=== PATIENT | male | born 1980 | race Caucasian/White ===

== ENCOUNTER 2018-07-02 09:04 | Emergency (ER) | payer BC ==
[2018-07-02 09:09] VITALS: BP 140/93
[2018-07-02] MEDS ORDERED: NORMAL SALINE 500 ML IV ONE (09:26)
[2018-07-02] MEDS ORDERED: HYDROMORPHONE HCL INJ/PF 2 MG/ML AMPULE IV ONE (09:28)
[2018-07-02] MEDS ORDERED: ONDANSETRON HCL INJ/PF 4 MG/2 ML SDV IV ONE (09:28)
--- NOTE | 2018-07-02 09:32 | ER Document Report ---
ED Medical Screen (RME) - General Chief Complaint: Abdominal Pain Stated Complaint: ABDOMINAL PAIN Time Seen by Provider: 07/02/18 09:26 Mode of Arrival: Ambulatory Information source: Patient Notes: Patient complained of abdominal pain which started yesterday. No nausea vomiting or diarrhea. He denies chest pain or shortness of breath. Patient states that he has had Pancreatitis in the past and the pain is similar to that experience. He said he drank alcohol on night. Patient requested for Dilaudid for pain control. I have greeted and performed a rapid initial assessment of this patient. A comprehensive ED assessment and evaluation of the patient, analysis of test results and completion of the medical decision making process will be conducted by additional ED providers. TRAVEL OUTSIDE OF THE [place] IN LAST 30 DAYS: No - Related Data Allergies/Adverse Reactions: No Known Allergies Allergy (Verified 02/04/16 19:44) Past Medical History - Social History Chew tobacco use (# tins/day): No Frequency of alcohol use: Occasional Drug Abuse: None Renal/ Medical History: Denies: Hx Peritoneal Dialysis Past Surgical History: Reports: Hx Tonsillectomy - Immunizations Hx Diphtheria, Pertussis, Tetanus Vaccination: Yes Physical Exam - Vital signs Vitals: Temp Pulse Resp BP Pulse Ox 98.5 F 90 14 140/93 H 97 07/02/18 09:08 07/02/18 09:08 07/02/18 09:08 07/02/18 09:08 07/02/18 09:08 Course - Vital Signs Vital signs: Temp Pulse Resp BP Pulse Ox 98.5 F 90 14 140/93 H 97 07/02/18 09:08 07/02/18 09:08 07/02/18 09:08 07/02/18 09:08 07/02/18 09:08
[2018-07-02 09:51] LABS: ABSOLUTE EOSINOPHILS # (AUTO) 0.1 10^3/uL (0.0-0.6); ABSOLUTE MONOCYTES (AUTO) 0.8 10^3/uL (0.1-1.4); BASOPHILS % (AUTO) 0.3 % (0-2); EOSINOPHILS % (AUTO) 0.8 % (0-6); HEMATOCRIT 50.2 % (37.9-51.0); HEMOGLOBIN 17.7 g/dL (13.5-17.0); LYMPHOCYTES % (AUTO) 14.6 % (13-45); MEAN CORPUSCULAR HGB CONC 35.2 g/dL (32.0-36.0); MEAN CORPUSCULAR VOLUME 99 fl (80-97); MONOCYTES % (AUTO) 5.8 % (3-13); PLATELET COUNT 248 10^3/uL (150-450); RED BLOOD COUNT 5.05 10^6/uL (4.35-5.55); RED CELL DISTRIBUTION WIDTH 12.8 % (11.5-14.0); SEGMENTED NEUTROPHILS % (AUTO) 78.5 % (42-78); TOTAL CELLS COUNTED % (AUTO) 100 %
[2018-07-02 10:02] LABS: ALANINE AMINOTRANSFERASE 60 U/L (21-72); ALBUMIN 4.7 g/dL (3.5-5.0); ALKALINE PHOSPHATASE 105 U/L (38-126); AMYLASE 163 U/L (30-110); ANION GAP 12 (5-19); ASPARTATE AMINO TRANSFERASE 79 U/L (17-59); BILIRUBIN,DIRECT 0.8 mg/dL (0.0-0.4); BILIRUBIN,TOTAL 1.9 mg/dL (0.2-1.3); BLOOD UREA NITROGEN 8 mg/dL (7-20); CALCIUM 9.7 mg/dL (8.4-10.2); CARBON DIOXIDE 22 mmol/L (22-30); CHLORIDE 101 mmol/L (98-107); GLUCOSE 90 mg/dL (75-110); POTASSIUM 4.6 mmol/L (3.6-5.0); SODIUM 134.7 mmol/L (137-145); TOTAL PROTEIN 7.6 g/dL (6.3-8.2)
[2018-07-02 10:09] LABS: LIPASE 2446.4 U/L (23-300)
--- NOTE | 2018-07-02 10:21 | ER Document Report ---
ED General - General Chief Complaint: Abdominal Pain Stated Complaint: ABDOMINAL PAIN Time Seen by Provider: 07/02/18 09:26 Mode of Arrival: Ambulatory Notes: 37-year-old male to emergency department chief complaint of nausea vomiting, diarrhea and abdominal pain. Patient has a history of pancreatitis. Had a pre- [employer] constitution party and pounded down some significant amount of alcohol according to patient. Began having abdominal pain afterwards. Thinks he may have pancreatitis. Denies any fever, chills, sweats. Denies any other major symptoms. No prior surgeries. Previous pancreatitis in 2012 and was hospitalized for 3 days on an n.p.o. diet. Patient states that he knows the treatment is just not eat anything and just drink clear liquids so that is what he has been doing but was feeling too sick to drink nonalcoholic beverages today. TRAVEL OUTSIDE OF THE [place] IN LAST 30 DAYS: No - HPI Onset: Yesterday Onset/Duration: Gradual, Worse Quality of pain: Achy Severity: Moderate Pain Level: 2 Associated symptoms: Diarrhea, Nausea, Vomiting - Related Data Allergies/Adverse Reactions: No Known Allergies Allergy (Verified 02/04/16 19:44) Past Medical History - General Information source: Patient - Social History Smoking Status: Never Smoker Chew tobacco use (# tins/day): No Frequency of alcohol use: Occasional Drug Abuse: None Family History: Reviewed & Not Pertinent Patient has suicidal ideation: No Patient has homicidal ideation: No - Medical History Medical History: Negative Renal/ Medical History: Denies: Hx Peritoneal Dialysis Past Surgical History: Reports: Hx Tonsillectomy - Immunizations Hx Diphtheria, Pertussis, Tetanus Vaccination: Yes Review of Systems - Review of Systems Notes: Constitutional: denies: Chills, Diaphoresis, Fever, Malaise, Weakness EENT: denies: Eye discharge, Blurred vision, Tearing, Double vision, Nose congestion, Nose discharge, Throat swelling, Mouth pain Cardiovascular: denies: Palpitations, Heart racing, Orthopnea, Dyspnea, Chest pain Respiratory: denies: Cough, Hurts to breathe, Wheezing, Shortness of breath Gastrointestinal: Complaining of nausea, vomiting, abdominal pain, diarrhea. Denies any black tarry stools or bright red blood in the stool. Genitourinary: denies: Burning, Dysuria, Discharge, Frequency, Flank pain, Hematuria Musculoskeletal: denies: Joint pain, Joint swelling, Muscle pain, Muscle stiffness, back pain Hematologic/Lymphatic: denies: Anemia, Easy bleeding, Easy bruising, Blood clots Neurological/Psychological: denies: Confusion, Dementia, Depression, Loss of consciousness Skin: No lesions, no masses, no skin breakdown, no abscesses Physical Exam - Vital signs Vitals: Temp Pulse Resp BP Pulse Ox 98.5 F 90 14 140/93 H 97 07/02/18 09:08 07/02/18 09:08 07/02/18 09:08 07/02/18 09:08 07/02/18 09:08 Interpretation: Normal - General General appearance: Appears well, Alert - HEENT Head: Normocephalic, Atraumatic Eyes: Normal Pupils: PERRL - Respiratory Respiratory status: No respiratory distress Chest status: Nontender Breath sounds: Normal Chest palpation: Normal - Cardiovascular Rhythm: Regular Heart sounds: Normal auscultation Murmur: No - Abdominal Inspection: Normal Distension: No distension Bowel sounds: Normal Tenderness: Tender - Mild tenderness palpation in the epigastric region. No guarding or rebound. Organomegaly: No organomegaly - Back Back: Normal, Nontender - Extremities General upper extremity: Normal inspection, Nontender, Normal color, Normal ROM , Normal temperature General lower extremity: Normal inspection, Nontender, Normal color, Normal ROM , Normal temperature, Normal weight bearing. No: Ernestine's sign - Neurological Neuro grossly intact: Yes Cognition: Normal Orientation: AAOx4 Mike Coma Scale Eye Opening: Spontaneous Mike Coma Scale Verbal: Oriented Mike Coma Scale Motor: Obeys Commands Rippey Coma Scale Total: 15 Speech: Normal Motor strength normal: LUE, RUE, LLE, RLE Sensory: Normal - Psychological Associated symptoms: Normal affect, Normal mood - Skin Skin Temperature: Warm Skin Moisture: Dry Skin Color: Normal Course - Re-evaluation Re-evalutation: 07/02/18 11:24 Laboratory 07/02/18 07/02/18 07/02/18 09:30 09:30 09:50 WBC 14.0 H RBC 5.05 Hgb 17.7 H Hct 50.2 MCV 99 H MCH 35.0 H MCHC 35.2 RDW 12.8 Plt Count 248 Seg Neutrophils % 78.5 H Lymphocytes % 14.6 Monocytes % 5.8 Eosinophils % 0.8 Basophils % 0.3 Absolute Neutrophils 11.0 H Absolute Lymphocytes 2.0 Absolute Monocytes 0.8 Absolute Eosinophils 0.1 Absolute Basophils 0.0 Sodium 134.7 L Potassium 4.6 Chloride 101 Carbon Dioxide 22 Anion Gap 12 BUN 8 Creatinine 0.73 Est GFR ( Amer) > 60 Est GFR (Non-Af Amer) > 60 Glucose 90 Calcium 9.7 Total Bilirubin 1.9 H Direct Bilirubin 0.8 H Neonat Total Bilirubin Not Reportable Neonat Direct Bilirubin Not Reportable Neonat Indirect Bili Not Reportable AST 79 H ALT 60 Alkaline Phosphatase 105 Total Protein 7.6 Albumin 4.7 Amylase 163 H Lipase 2446.4 H Urine Color YELLOW Urine Appearance CLEAR Urine pH 6.0 Ur Specific [place] 1.023 Urine Protein 30 H Urine Glucose (UA) NEGATIVE Urine Ketones 300 H Urine Blood NEGATIVE Urine Nitrite NEGATIVE Urine Bilirubin NEGATIVE Urine Urobilinogen 2.0 H Ur Leukocyte Esterase NEGATIVE Urine WBC (Auto) 0 Urine RBC (Auto) 0 U Hyaline Cast (Auto) 1 Urine Bacteria (Auto) TRACE Urine Mucus (Auto) MANY Urine Ascorbic Acid NEGATIVE 07/02/18 14:37 Abdomen/Pelvis CT 07/02/18 00:00 IMPRESSION: Uncomplicated pancreatitis Patient feeling much better at this time. More likely he can go home as long as he avoids food. Patient seems comfortable with that plan. - Vital Signs Vital signs: Temp Pulse Resp BP Pulse Ox 98.5 F 90 14 140/93 H 97 07/02/18 09:08 07/02/18 09:08 07/02/18 09:08 07/02/18 09:08 07/02/18 09:08 - Laboratory Result Diagrams: 07/02/18 09:30 07/02/18 09:30 Laboratory results interpreted by me: 07/02/18 07/02/18 07/02/18 09:30 09:30 09:50 WBC 14.0 H Hgb 17.7 H MCV 99 H MCH 35.0 H Seg Neutrophils % 78.5 H Absolute Neutrophils 11.0 H Sodium 134.7 L Total Bilirubin 1.9 H Direct Bilirubin 0.8 H AST 79 H Amylase 163 H Lipase 2446.4 H Urine Protein 30 H Urine Ketones 300 H Urine Urobilinogen 2.0 H Discharge - Discharge Clinical Impression: Acute pancreatitis Qualifiers: Pancreatitis type: alcohol induced Acute pancreatitis complication: no infection or necrosis Qualified Code(s): K85.20 - Alcohol induced acute pancreatitis without necrosis or infection Condition: Good Disposition: HOME, SELF-CARE Instructions: Pancreatitis ([facility]) Additional Instructions: Follow the instructions as given by the emergency physician to avoid alcohol, fatty foods. Continue with a clear liquid diet today. May advance to broth tomorrow. May advance to crackers and light meals as tolerated on Tuesday. In the event the pain is getting worse over the next 24 hours please return to the emergency department for repeat evaluation. Follow-up information for well head pumper has been provided. It may be beneficial for you to schedule an appointment with well head pumper to review your pancreatitis. Prescriptions: Ondansetron [Zofran Odt 4 mg Tablet] 1 - 2 tab PO Q4H PRN #15 tab.rapdis PRN Reason: For Nausea/Vomiting Oxycodone HCl [Oxycontin Ir 5 Mg Tablet] 1 mg PO Q6H PRN 5 Days #15 tablet PRN Reason: For Pain Referrals: STEVEN MONET MD [ACTIVE STAFF] - Follow up in 1 week
[2018-07-02 10:27] LABS: APPEARANCE,URINE CLEAR; BILIRUBIN,URINE NEGATIVE (NEGATIVE); COLOR,URINE YELLOW; GLUCOSE, URINE NEGATIVE (NEGATIVE); KETONES,URINE 300 mg/dL (NEGATIVE); LEUKOCYTE ESTERASE,URINE NEGATIVE (NEGATIVE); NITRITE,URINE NEGATIVE (NEGATIVE); PROTEIN,URINE 30 mg/dL (NEGATIVE); URINE SPECIFIC GRAVITY 1.023
--- NOTE | 2018-07-02 12:40 | RADIOLOGY REPORT (SQ) ---
EXAM DESCRIPTION: CT ABD/PELVIS WITH IV ORAL COMPLETED DATE/TIME: 07/02/2018 12:27 pm REASON FOR STUDY: abdominal pain COMPARISON: 01/08/2013 CT abdomen pelvis TECHNIQUE: CT scan of the abdomen and pelvis performed using helical scanning technique with dynamic intravenous contrast injection. Patient drank oral contrast. Images reviewed with lung, soft tissue , and bone windows. Reconstructed coronal and sagittal MPR images reviewed. Delayed images for evalua tion of the urinary system also acquired. All images stored on PACS. All CT scanners at this facility use dose modulation, iterative reconstruction, and/or weight based d osing when appropriate to reduce radiation dose to as low as reasonably achievable (ALARA). [facility]: Dose Right [facility]: CareDose [facility]: Dose Right [facility]: Teradose 4D [facility]: Sensbeat CONTRAST TYPE AND DOSE: contrast/concentration: Isovue 350.00 mg/ml; Total Contrast Delivered: 61.0 ml; Total Saline Delivered: 62.0 ml RENAL FUNCTION: Creatinine 0.7 RADIATION DOSE: CT Rad equipment meets quality standard of care and radiation dose reduction techniq ues were employed. CTDIvol: 4.8 - 4.9 mGy. DLP: 501 mGy-cm.. LIMITATIONS: None. FINDINGS: There is inflammation in the left anterior pararenal space along the pancreatic tail and s plenic hilum. No well-defined pancreatic pseudocyst. No splenic vein thrombosis. Findings likely r epresent recurrent pancreatitis. LOWER CHEST: No significant findings. No nodules or infiltrates. LIVER: Normal size. No masses. No dilated ducts. SPLEEN: Normal size. No focal lesions. PANCREAS: As above GALLBLADDER: No identified stones by CT criteria. No inflammatory changes to suggest cholecystitis. ADRENAL GLANDS: No significant masses or asymmetry. RIGHT KIDNEY AND URETER: No solid masses. No significant calcifications. No hydronephrosis or hyd roureter. LEFT KIDNEY AND URETER: No solid masses. No significant calcifications. No hydronephrosis or hydr oureter. AORTA AND VESSELS: No aneurysm. No dissection. Renal arteries, SMA, celiac without stenosis. RETROPERITONEUM: No retroperitoneal adenopathy, hemorrhage or masses. BOWEL AND PERITONEAL CAVITY: Patient drank oral contrast. No bowel obstruction. No free intraperito oliva air or fluid. No masses or inflammatory changes. No free fluid or peritoneal masses. APPENDIX: Normal. PELVIS: No mass. No free fluid. Normal bladder. ABDOMINAL WALL: No masses. No hernias. BONES: No significant or acute findings. OTHER: No other significant finding. IMPRESSION: Uncomplicated pancreatitis TECHNICAL DOCUMENTATION: JOB ID: [id number] Quality ID # [id number]: Final reports with documentation of one or more dose reduction techniques (e.g., Au tomated exposure control, adjustment of the mA and/or kV according to patient size, use of iterative reconstruction technique) 2010 [employer]- All Rights Reserved Reading location - IP/workstation name: [facility]
[2018-07-02] MEDS ORDERED: RINGERS SOLUTION,LACTATED 1,000 ML IV ONE (14:35)
== END 2018-07-02 16:38 | disposition home or self-care (01) ==
LOC: ER 09:04
DX: K85.20 Alcohol induced acute pancreatitis without necrosis or infection (principal); R10.9 Unspecified abdominal pain; R11.2 Nausea with vomiting, unspecified; R19.7 Diarrhea, unspecified
CPT/HCPCS: 99284; 96361; 96374; 96375; 36415; 80307; 82150; 83690; 85025; 80053; 81001; 74177; J1170; J2405

== ENCOUNTER 2018-12-06 16:46 | Emergency (ER) | payer BC ==
--- NOTE | 2018-12-06 19:56 | ER Document Report ---
ED Medical Screen (RME) - General Chief Complaint: Abdominal Pain Stated Complaint: BACK PAIN Time Seen by Provider: 12/06/18 19:52 Notes: 38-year-old male with left low back/flank pain. Previous evaluations have found no evidence of UTI or stone. I have treated and performed a rapid initial assessment of this patient. A comprehensive ED assessment and evaluation of the patient, analysis of test results and completion of medical decision making process will be conducted by additional ED providers. PHYSICAL EXAMINATION: GENERAL: Well-appearing, well-nourished and in no acute distress. A&Ox4. Answers questions appropriately. LUNGS: Breath sounds clear to auscultation bilaterally and equal. No wheezes rales or rhonchi. HEART: Regular rate and rhythm without murmurs, rubs, gallops. ABDOMEN: Soft, nondistended abdomen. No guarding, no rebound. Normal bowel sounds present. No CVA tenderness bilaterally. + mild epigastric tenderness (cannot elicit thorough abd exam w/o table, however). Extremities: No cyanosis, clubbing, or edema b/l. NEUROLOGICAL: Normal speech, normal gait. PSYCH: Normal mood, normal affect. TRAVEL OUTSIDE OF THE [place] IN LAST 30 DAYS: No - Related Data Allergies/Adverse Reactions: No Known Allergies Allergy (Verified 12/06/18 16:47) Past Medical History - Social History Frequency of alcohol use: None Drug Abuse: None Renal/ Medical History: Denies: Hx Peritoneal Dialysis Past Surgical History: Reports: Hx Tonsillectomy - Immunizations Hx Diphtheria, Pertussis, Tetanus Vaccination: Yes Physical Exam - Vital signs Vitals: Temp Pulse Resp BP Pulse Ox 99.7 F 92 16 120/73 99 12/06/18 17:10 12/06/18 17:10 12/06/18 17:10 12/06/18 17:10 12/06/18 17:10 Course - Vital Signs Vital signs: Temp Pulse Resp BP Pulse Ox 99.7 F 92 16 120/73 99 12/06/18 17:10 12/06/18 17:10 12/06/18 17:10 12/06/18 17:10 12/06/18 17:10
[2018-12-06 20:14] LABS: APPEARANCE,URINE SLIGHTLY-CLOUDY; BILIRUBIN,URINE NEGATIVE (NEGATIVE); COLOR,URINE YELLOW; GLUCOSE, URINE NEGATIVE (NEGATIVE); KETONES,URINE NEGATIVE (NEGATIVE); LEUKOCYTE ESTERASE,URINE NEGATIVE (NEGATIVE); NITRITE,URINE NEGATIVE (NEGATIVE); PROTEIN,URINE NEGATIVE (NEGATIVE); URINE SPECIFIC GRAVITY 1.021; UROBILINOGEN,URINE NEGATIVE mg/dL (<2.0)
[2018-12-06 20:28] LABS: ABSOLUTE BASOPHILS # (AUTO) 0.1 10^3/uL (0.0-0.2); ABSOLUTE EOSINOPHILS # (AUTO) 0.2 10^3/uL (0.0-0.6); ABSOLUTE LYMPHOCYTES (AUTO) 2.3 10^3/uL (0.5-4.7); ABSOLUTE MONOCYTES (AUTO) 0.5 10^3/uL (0.1-1.4); ABSOLUTE NEUT (AUTO) 8.1 10^3/uL (1.7-8.2); BASOPHILS % (AUTO) 0.7 % (0-2); EOSINOPHILS % (AUTO) 1.4 % (0-6); HEMATOCRIT 37.1 % (37.9-51.0); HEMOGLOBIN 12.5 g/dL (13.5-17.0); LYMPHOCYTES % (AUTO) 20.7 % (13-45); MEAN CORPUSCULAR HEMOGLOBIN 30.7 pg (27.0-33.4); MEAN CORPUSCULAR HGB CONC 33.7 g/dL (32.0-36.0); MEAN CORPUSCULAR VOLUME 91 fl (80-97); MONOCYTES % (AUTO) 4.5 % (3-13); PLATELET COUNT 372 10^3/uL (150-450); RED BLOOD COUNT 4.07 10^6/uL (4.35-5.55); RED CELL DISTRIBUTION WIDTH 13.5 % (11.5-14.0); SEGMENTED NEUTROPHILS % (AUTO) 72.7 % (42-78); TOTAL CELLS COUNTED % (AUTO) 100 %; WHITE BLOOD COUNT 11.1 10^3/uL (4.0-10.5)
[2018-12-06 20:53] LABS: ALANINE AMINOTRANSFERASE 25 U/L (21-72); ALBUMIN 3.9 g/dL (3.5-5.0); ALKALINE PHOSPHATASE 88 U/L (38-126); ANION GAP 11 (5-19); ASPARTATE AMINO TRANSFERASE 22 U/L (17-59); BILIRUBIN,DIRECT 0.2 mg/dL (0.0-0.4); BILIRUBIN,TOTAL 0.3 mg/dL (0.2-1.3); BLOOD UREA NITROGEN 9 mg/dL (7-20); CALCIUM 9.2 mg/dL (8.4-10.2); CARBON DIOXIDE 27 mmol/L (22-30); CHLORIDE 102 mmol/L (98-107); GLUCOSE 134 mg/dL (75-110); LIPASE 1148.2 U/L (23-300); POTASSIUM 3.9 mmol/L (3.6-5.0); SODIUM 140.2 mmol/L (137-145); TOTAL PROTEIN 6.5 g/dL (6.3-8.2)
[2018-12-06] MEDS ORDERED: MORPHINE SULFATE 10 MG/ML INJ IV ONE (22:56)
--- NOTE | 2018-12-07 00:25 | RADIOLOGY REPORT (SQ) ---
EXAM DESCRIPTION: CT ABDOMEN PELVIS WITH IV CONTRAST COMPLETED DATE/TME: 12/06/2018 22:39 CLINICAL HISTORY: 38 years, Male, elevated lipase, left sided back pain This exam was performed according to our departmental dose-optimization program which includes automated exposure control, adjustment of the mA and/or kVp according to patient size and/or use of iterative reconstruction technique where applicable. FINDINGS: Mild left pleural effusion. Liver, spleen, gallbladder and adrenal glands are within normal limits. Moderate left perinephric stranding is noted. There is a left upper quadrant fluid collection measuring 5 cm, placed in between the pancreas and the left kidney. Moderate retroperitoneal stranding. No significant hydronephrosis. No significant pancreatic ductal dilatation or biliary dilatation. No dilated loops of bowel to suggest obstruction. Mild amount of stool in the colon. Bladder is unremarkable. Mild left retroperitoneal lymphadenopathy. Abdominal aorta is mildly calcified without aneurysm. IMPRESSION: Moderate left perinephric and retroperitoneal stranding, with a fluid collection posterior to the pancreas. Findings may be due to pancreatitis and pseudocyst. Alternatively, findings may be due to left-sided urinary obstruction. However, there is no hydronephrosis or obstructing calculus identified. Mild left retroperitoneal lymphadenopathy likely reactive in nature.
--- NOTE | 2018-12-07 01:01 | ER Document Report ---
ED General - General Chief Complaint: Abdominal Pain Stated Complaint: BACK PAIN Time Seen by Provider: 12/06/18 19:52 Primary Care Provider: CHINTAN CADENA MD [NO LOCAL MD] - Follow up in 3-5 days RASHARD NICKERSON MD [ACTIVE STAFF] - Follow up in 3-5 days SUMAN ROOT MD [ACTIVE STAFF] - Follow up in 3-5 days Notes: Patient is a 38-year-old male with a history of recurrent pancreatitis. He says he is a pink test twice before. Last time was in June. He said that time he had been drinking before. He patient says that with his previous pancreatitis he has more abdominal pain and vomiting. He said this time he just had chronic slowly worsening pain in his left back that has been slowly worsening over the course of 1-2 months. He did see his doctor at [facility]. He said they did blood work. He said he was referred to a GI doctor who he saw 2 days ago. He said the GI doctor was Dr. Moseley. He says he talked about doing a colonoscopy. Patient says he did not feel like he was getting good answers and therefore is come to the ER. Some nausea. No vomiting. No fevers. No other complaints at this time. Patient says he has not drank alcohol in 6 months. He denies any pain in the right upper quadrant. No pain with eating. TRAVEL OUTSIDE OF THE [place] IN LAST 30 DAYS: No - Related Data Allergies/Adverse Reactions: No Known Allergies Allergy (Verified 12/06/18 16:47) Past Medical History - Social History Smoking Status: Current Every Day Smoker Frequency of alcohol use: None Drug Abuse: None Family History: Reviewed & Not Pertinent Patient has suicidal ideation: No Patient has homicidal ideation: No Renal/ Medical History: Denies: Hx Peritoneal Dialysis Past Surgical History: Reports: Hx Tonsillectomy - Immunizations Hx Diphtheria, Pertussis, Tetanus Vaccination: Yes Review of Systems - Review of Systems Notes: My Normal Review Basic REVIEW OF SYSTEMS: CONSTITUTIONAL : Denies fever, chills, or sweats. Denies recent illness. EENT: Denies eye, ear, throat, or mouth pain or symptoms. Denies nasal or sinus congestion. CARDIOVASCULAR: Denies chest pain. RESPIRATORY: Denies cough, cold, or chest congestion. Denies shortness of breath, difficulty breathing, or wheezing. GASTROINTESTINAL: Epigastric abdominal pain. Some nausea but no vomiting. GENITOURINARY: Denies difficulty urinating, painful urination, burning, frequency, or blood in urine. MUSCULOSKELETAL: Left-sided back and flank pain. SKIN: Denies rash or skin lesions. NEUROLOGICAL: Denies altered mental status or loss of consciousness. Denies headache. Denies weakness or paralysis or loss of use of either side. Denies problems with gait or speech. Denies sensory or motor loss. ALL OTHER SYSTEMS REVIEWED AND NEGATIVE. Physical Exam - Vital signs Vitals: Temp Pulse Resp BP Pulse Ox 99.7 F 92 16 120/73 99 12/06/18 17:10 12/06/18 17:10 12/06/18 17:10 12/06/18 17:10 12/06/18 17:10 - Notes Notes: General Appearance: Well nourished, alert, cooperative, no acute distress, mild obvious discomfort. Well-appearing. Vitals: reviewed, See vital signs table. Head: no swelling or tenderness to the head Eyes: PERRL, EOMI, Conjuctiva clear Mouth: No decreasd moisture Lungs: No wheezing, No rales, No rhonci, No accessory muscle use, good air exchange bilaterally. Heart: Normal rate, Regular rythm, No murmur, no rub Abdomen: Normal BS, soft, No rigidity, mild epigastric abdominal tenderness outpatient, No guarding, no rebound, no abdominal masses, no organomegaly Back: Mild left-sided back and flank pain to palpation. Extremities: strength 5/5 in all extremities, good pulses in all extremities, no swelling or tenderness in the extremities, no edema. Skin: warm, dry, appropriate color, no rash Neuro: speech clear, oriented x 3, normal affect, responds appropriately to questions. Course - Re-evaluation Re-evalutation: 12/07/18 00:[address] scan results. Patient clinically still looks well. I did speak with the hospitalist, Dr. Palacio, to see if there is anything that oatient needs to be admitted for acutely in regards to his pseudocyst and lipase elevation. He says that they will admit the patient if he was having ongoing vomiting and severe pain with his pancreatitis; however, being that the patient is not having vomiting and that this pain has been gradual over the course of 2 months then they do not feel the need to admit him for acute pancreatitis at this time. He recommends speaking with surgery about management of the pseudocyst. I did call our surgeon, Suman Root, and did speak with him. He informs me that the cyst is less than 6 cm; therefore, there is nothing acute to do for the cyst itself. So the patient can follow-up in the clinic and they will monitor the cyst progression with repeat CT scan in 3 months. He does recommend looking at the gallbladder to make sure that there is no evidence of gallstones or enlarged common bile duct. Ultrasound was obtained. Patient has a small amount of sludge in gallbladder but no stones and no evidence of cholecystitis. Common bile duct is normal. At this time still not clear why he has this chronic pancreatitis. At this time he is not having severe symptoms. He has some pain but no vomiting. He looks very well and his vital signs are stable[place] [id number]. Talked about outpatient treatment with close follow-up and is agreeable with this. Informed him that at this time the pseudocyst needs to be followed by the surgery clinic. I have referred him to surgery clinic in a bar spoke with Dr. Root about this. I informed the patient that chronic pancreatitis can be related to an unknown cause but can sometimes also be related to pancreatic cancer. I informed him I think this is less likely in his case being that he has no a ssociated pancreatic mass; however, he needs to follow-up closely with GI physician for further workup as to the exact etiology of why this has been ongoing for the last 1-2 months. Patient is agreeable with plan. I strongly encouraged patient to return to ER immediately if he has any worsening pain, any vomiting, any fevers, or any further concerns. Informed him to do mainly liquid diet over the next 2440 hrs. and then to progress to a bland diet and to avoid fatty foods and fried foods. Dictation of this chart was performed using voice recognition software; therefore, there may be some unintended grammatical errors. 12/07/18 06:38 - Vital Signs Vital signs: Temp Pulse Resp BP Pulse Ox 98.1 F 78 14 100/64 98 12/07/18 02:26 12/07/18 02:26 12/07/18 02:26 12/07/18 02:12/07/18 02:26 - Laboratory Result Diagrams: 12/06/18 20:16 12/06/18 20:16 Laboratory results interpreted by me: 12/06/18 12/06/18 20:16 20:16 WBC 11.1 H RBC 4.07 L Hgb 12.5 L Hct 37.1 L Glucose 134 H Lipase 1148.2 H Discharge - Discharge Clinical Impression: Pancreatic pseudocyst Pancreatitis Qualifiers: Chronicity: chronic Pancreatitis type: unspecified pancreatitis type Qualified Code(s): K86.1 - Other chronic pancreatitis Condition: Good Disposition: HOME, SELF-CARE Additional Instructions: As discussed with you, you have a cyst on your pancreas. This is likely related to recurring pancreatitis. The exact cause of your pancreatitis is not 100% clear. Causes of pancreatitis can be pancreatic cancer, medications, gallbladder disease, alcohol use. I have referred you to the surgery clinic. Surgery clinic phone number is under the name Dr. Suman Root on your discharge paperwork. Please call them to make a follow-up appointment and they will help follow the cyst on your pancreas. If it continues to grow in size they may eventually have to do an intervention on it. I also referred you to the GI physician, Dr. Nickerson or Dr. Cadena, please call him for further workup of the cause of your recurrent pancreatitis. Please have a very low threshold to return to the ER immediately if you have fevers, vomiting, worsening pain, or if you feel that you are worsening in any way. Please do just a liquid diet for the next 24-48 hours. After that eat a very bland foods. Do not eat anything that is spicy, fried, fatty. Please be aware that [facility] does have Tylenol (acetaminophen) in it. Please make sure you do not take more than 4000 mg of acetaminophen a day. Do not drive or care for children after you have taken this medication they will make you sleepy and sometimes impair judgment. Forms: Return to Work Referrals: SUMAN ROOT MD [ACTIVE STAFF] - Follow up in 3-5 days RASHARD NICKERSON MD [ACTIVE STAFF] - Follow up in 3-5 days CHINTAN CADENA MD [NO LOCAL MD] - Follow up in 3-5 days
--- NOTE | 2018-12-07 01:55 | RADIOLOGY REPORT (SQ) ---
EXAM DESCRIPTION: US ABDOMEN DOPPLER LIMITED COMPLETED DATE/TME: 12/07/2018 00:40 CLINICAL HISTORY: 38 years, Male, ruq abdominal pain Compared to CT abdomen dated 12/06/2018. Findings: Pancreas demonstrates cystic lesion in the tail measuring 5.7 x 4.6 cm. This correlates with CT findings. Aorta is within normal limits. IVC is within normal limits. Portal vein is patent with hepatopedal flow. Liver is within normal limits for size. No biliary dilatation. Gallbladder demonstrates mild sludge, otherwise unremarkable. No wall thickening. Right kidney does not demonstrate hydronephrosis. No right upper quadrant ascites. IMPRESSION: Pancreatic tail cystic lesion, correlating with CT findings. No significant biliary dilatation. Gallbladder sludge without any evidence for cholecystitis.
[2018-12-07] MEDS ORDERED: HYDROCODONE/ACETAMINOPHEN 5-325 MG (6 TAB/ER DISP) PO PRN (02:11)
[2018-12-07 02:28] VITALS: BP 100/64
== END 2018-12-07 02:28 | disposition home or self-care (01) ==
LOC: ER 16:46
DX: K86.1 Other chronic pancreatitis (principal); K86.3 Pseudocyst of pancreas; K82.8 Other specified diseases of gallbladder; M54.9 Dorsalgia, unspecified; R11.0 Nausea; R10.13 Epigastric pain; F17.200 Nicotine dependence, unspecified, uncomplicated
CPT/HCPCS: 99284; 96374; 36415; 83690; 85025; 80053; 81001; 76705; 93976; 74177; J2270

== ENCOUNTER 2019-01-23 15:43 | Emergency (ER) | payer BC ==
--- NOTE | 2019-01-23 16:43 | ER Document Report ---
ED Medical Screen (RME) - General Chief Complaint: Flank Pain Stated Complaint: FLANK PAIN Time Seen by Provider: 01/23/19 16:31 Mode of Arrival: Medic Information source: Patient Notes: Patient presents to the emergency department with complaints of left-sided flank pain that radiates down his left leg today. He reports he had a flank pain for the past week. He is taken ibuprofen which has relieved this symptoms of little bit. He denies history of kidney stones. Reports history of pancreatitis. Reports he received fentanyl and Toradol by EMS and it did not help his pain at all, I have greeted and performed a rapid initial assessment of this patient. A comprehensive ED assessment and evaluation of the patient, analysis of test results and completion of the medical decision making process will be conducted by additional ED providers. TRAVEL OUTSIDE OF THE [place] IN LAST 30 DAYS: No - Related Data Allergies/Adverse Reactions: No Known Allergies Allergy (Verified 12/06/18 16:47) Past Medical History Renal/ Medical History: Denies: Hx Peritoneal Dialysis Past Surgical History: Reports: Hx Tonsillectomy - Immunizations Hx Diphtheria, Pertussis, Tetanus Vaccination: Yes Physical Exam - Vital signs Vitals: Temp Pulse Resp BP Pulse Ox 97.4 F 105 H 22 H 137/78 H 100 01/23/19 15:50 01/23/19 15:50 01/23/19 15:50 01/23/19 15:50 01/23/19 15:50 Course - Vital Signs Vital signs: Temp Pulse Resp BP Pulse Ox 97.4 F 105 H 22 H 137/78 H 100 01/23/19 15:50 01/23/19 15:50 01/23/19 15:50 01/23/19 15:50 01/23/19 15:50
[2019-01-23 17:32] LABS: ABSOLUTE BASOPHILS # (AUTO) 0.1 10^3/uL (0.0-0.2); ABSOLUTE EOSINOPHILS # (AUTO) 0.1 10^3/uL (0.0-0.6); ABSOLUTE LYMPHOCYTES (AUTO) 1.9 10^3/uL (0.5-4.7); ABSOLUTE MONOCYTES (AUTO) 0.9 10^3/uL (0.1-1.4); ABSOLUTE NEUT (AUTO) 12.3 10^3/uL (1.7-8.2); BASOPHILS % (AUTO) 0.4 % (0-2); EOSINOPHILS % (AUTO) 0.3 % (0-6); HEMATOCRIT 34.9 % (37.9-51.0); HEMOGLOBIN 11.7 g/dL (13.5-17.0); LYMPHOCYTES % (AUTO) 12.6 % (13-45); MEAN CORPUSCULAR HEMOGLOBIN 29.4 pg (27.0-33.4); MEAN CORPUSCULAR HGB CONC 33.5 g/dL (32.0-36.0); MEAN CORPUSCULAR VOLUME 88 fl (80-97); MONOCYTES % (AUTO) 6.1 % (3-13); PLATELET COUNT 309 10^3/uL (150-450); RED BLOOD COUNT 3.98 10^6/uL (4.35-5.55); RED CELL DISTRIBUTION WIDTH 16.1 % (11.5-14.0); SEGMENTED NEUTROPHILS % (AUTO) 80.6 % (42-78); TOTAL CELLS COUNTED % (AUTO) 100 %; WHITE BLOOD COUNT 15.3 10^3/uL (4.0-10.5)
[2019-01-23 17:43] LABS: APPEARANCE,URINE SLIGHTLY-CLOUDY; BILIRUBIN,URINE SMALL (NEGATIVE); COLOR,URINE AMBER; GLUCOSE, URINE NEGATIVE (NEGATIVE); KETONES,URINE 20 mg/dL (NEGATIVE); LEUKOCYTE ESTERASE,URINE TRACE (NEGATIVE); NITRITE,URINE NEGATIVE (NEGATIVE); PROTEIN,URINE 100 mg/dL (NEGATIVE); URINE SPECIFIC GRAVITY 1.051
[2019-01-23 17:52] LABS: ALANINE AMINOTRANSFERASE 19 U/L (21-72); ALKALINE PHOSPHATASE 86 U/L (38-126); ANION GAP 10 (5-19); ASPARTATE AMINO TRANSFERASE 20 U/L (17-59); BILIRUBIN,DIRECT 0.4 mg/dL (0.0-0.4); BILIRUBIN,TOTAL 0.8 mg/dL (0.2-1.3); BLOOD UREA NITROGEN 17 mg/dL (7-20); CALCIUM 9.8 mg/dL (8.4-10.2); CARBON DIOXIDE 23 mmol/L (22-30); CHLORIDE 105 mmol/L (98-107); GLUCOSE 113 mg/dL (75-110); POTASSIUM 3.7 mmol/L (3.6-5.0); SODIUM 138.1 mmol/L (137-145)
--- NOTE | 2019-01-23 17:55 | RADIOLOGY REPORT (SQ) ---
EXAM DESCRIPTION: CT ABD/PELVIS NO ORAL OR IV COMPLETED DATE/TIME: 01/23/2019 4:54 pm REASON FOR STUDY: left flank pain COMPARISON: 07/02/2018 TECHNIQUE: CT scan of the abdomen and pelvis performed without intravenous or oral contrast. Images reviewed with lung, soft tissue, and bone windows. Reconstructed coronal and sagittal MPR images revi ewed. All images stored on PACS. All CT scanners at this facility use dose modulation, iterative reconstruction, and/or weight based d osing when appropriate to reduce radiation dose to as low as reasonably achievable (ALARA). [facility]: Dose Right [facility]: CareDose [facility]: Dose Right [facility]: Teradose 4D [facility]: Smart [employer] RADIATION DOSE: CT Rad equipment meets quality standard of care and radiation dose reduction techniq ues were employed. CTDIvol: 4.8 mGy. DLP: 246 mGy-cm.mGy. LIMITATIONS: None. FINDINGS: LOWER CHEST: No significant findings. No nodules or infiltrates. NON-CONTRASTED LIVER, SPLEEN, ADRENALS: Evaluation limited by lack of IV contrast. No identified sign ificant masses. PANCREAS: There is a 6.5 cm thick-walled fluid collection in the region of the tail of the pancreas. This may be confluent with the fluid collection in the left psoas muscle described below. This flui d collection cannot be from the left kidney. GALLBLADDER: No identified stones by CT criteria. No inflammatory changes to suggest cholecystitis. RIGHT KIDNEY AND URETER: No suspicious masses. Assessment limited by lack of IV contrast. No defini te calcifications. The renal pyramids are slightly dense. No hydronephrosis or hydroureter. LEFT KIDNEY AND URETER: No solid masses. There is a large fluid collection that is adjacent to the t op of the kidney as described under pancreas above. Slightly hyperdense renal pyramids. No hydron ephrosis or hydroureter. AORTA AND RETROPERITONEUM: There is a large fluid collection in the psoas muscle on the left. This m easures 5.5 cm in diameter on image 41. This fluid extends up within the psoas. BOWEL AND PERITONEAL CAVITY: No obvious masses or inflammatory changes. No free fluid. APPENDIX: Not identified. PELVIS, BLADDER, AND ABDOMINAL WALL:The large so was fluid collection described above extends into th e iliacus. BONES: No significant findings. OTHER: No other significant finding. IMPRESSION: There is a large left iliopsoas fluid collection that may be confluent with a large flui d collection associated with the tail of pancreas. This could represent a large pancreatic pseudocys t. Psoas abscess cannot be excluded. This may be compressing the upper pole the left kidney. It is possible there is a large upper pole renal cyst as well. Recommend percutaneous drainage. COMMENT: Quality ID # [id number]: Final reports with documentation of one or more dose reduction techniques (e.g., Automated exposure control, adjustment of the mA and/or kV according to patient size, use of iterative reconstruction technique) TECHNICAL DOCUMENTATION: JOB ID: [id number] [employer]- All Rights Reserved Reading location - IP/workstation name: [email or web address]
--- NOTE | 2019-01-23 20:08 | ER Document Report ---
ED General - General Chief Complaint: Flank Pain Stated Complaint: FLANK PAIN Time Seen by Provider: 01/23/19 20:08 Primary Care Provider: SUSANNAH RUGGIERO PA [Primary Care Provider] - Follow up as needed Mode of Arrival: Ambulatory Information source: Patient Notes: HISTORY OF PRESENT ILLNESS: Patient is a 38-year-old male with a past medical history of chronic pancre atitis and pancreatic pseudocyst who presents with acute onset left flank pain beginning 1 day ago that worsened today. Location: Left flank Onset: Sudden 1 day ago Alleviation: None Provocation: Movement Quality: Aching, cramping, throbbing Radiation: Left lower back Severity: Severe Timing: Constant History of abdominal surgery: Nothing Associated symptoms: No fevers or chills, cough or congestion, no hematuria or dysuria, no vomiting or diarrhea Last bowel movement: Today and normal REVIEW OF SYSTEMS: CONSTITUTIONAL : Denies fever or chills, no sweats. Denies recent illness. EENT: Denies eye, ear, throat, or mouth pain or symptoms. Denies nasal or sinus congestion. CARDIOVASCULAR: Denies chest pain. Denies swelling of the legs. RESPIRATORY: Denies cough, cold, or chest congestion. Denies shortness of breath or difficulty breathing. Denies wheezing. GASTROINTESTINAL: Positive for abdominal pain. Denies nausea, vomiting, or diarrhea. Denies constipation. GENITOURINARY: Denies difficulty urinating, painful urination, burning, frequency, or blood in urine. FEMALE GENITOURINARY: Denies vaginal bleeding, abnormal or irregular periods. MUSCULOSKELETAL: Denies neck or back pain or joint pain or swelling. SKIN: Denies rash or skin lesions. HEMATOLOGIC : Denies easy bruising or bleeding. LYMPHATIC: Denies swollen, enlarged glands. NEUROLOGICAL: Denies altered mental status or loss of consciousness. Denies headache. Denies weakness or paralysis or loss of use of either side. Denies problems with gait or speech. Denies sensory or motor loss. PSYCHIATRIC: Denies anxiety or stress or depression. All other systems reviewed and negative. PHYSICAL EXAMINATION: GENERAL: Uncomfortable-appearing, well-nourished and in no acute distress. HEAD: Atraumatic, normocephalic. No scalp deformity, depression, or crepitance. EYES: Pupils are 3 mm and equal/round/reactive to light, extraocular movements intact, sclera anicteric, conjunctiva are normal. ENT: Nares patent bilaterally, oropharynx. Moist mucous membranes. No tonsil hypertrophy. NECK: Normal range of motion, supple without lymphadenopathy. LUNGS: Breath sounds present, equal, and clear to auscultation bilaterally. No wheezes, rales, or rhonchi. HEART: Regular rate and rhythm without murmurs, rubs, or gallops. 2+ peripheral pulses. Normal capillary refill. ABDOMEN: Soft without distention, moderate left CVA tenderness, no peritoneal signs. Normoactive bowel sounds. No guarding, no rebound. No masses appreciated. BACK: Normal contour, no midline tenderness. Rectal exam deferred. GENITAL/PELVIC: Deferred. EXTREMITIES: Normal range of motion, no pitting or edema. No cyanosis. NEUROLOGICAL: No focal neurological deficits. Moves all extremities spontaneously and on command. PSYCH: Normal mood, normal affect. No suicidal thoughts/ideations. No homicidal thoughts/ideations. No hallucinations. SKIN: Warm, dry, normal turgor, no rashes or lesions noted. ASSESSMENT AND PLAN: This patient is a 38-year-old male who presents with acute left flank pain that could be renal stone versus colitis versus pyelonephritis versus UTI. 1. Will obtain labs, urine, CT scan, and reassess. 2. Will give IV fluids with morphine for pain control. TRAVEL OUTSIDE OF THE [place] IN LAST 30 DAYS: No - Related Data Allergies/Adverse Reactions: No Known Allergies Allergy (Verified 12/06/18 16:47) Past Medical History - General Information source: Patient - Social History Smoking Status: Current Every Day Smoker Chew tobacco use (# tins/day): No Frequency of alcohol use: Occasional Drug Abuse: None Lives with: Alone Family History: Reviewed & Not Pertinent Patient has suicidal ideation: No Patient has homicidal ideation: No - Past Medical History Cardiac Medical History: Reports: None Pulmonary Medical History: Reports: None EENT Medical History: Reports: None Neurological Medical History: Reports: None Endocrine Medical History: Reports: None Renal/ Medical History: Reports: None. Denies: Hx Peritoneal Dialysis Malignancy Medical History: Reports None GI Medical History: Reports: Other - History of chronic pancreatitis and pancreatic pseudocyst Musculoskeletal Medical History: Reports None Skin Medical History: Reports None Psychiatric Medical History: Reports: None Traumatic Medical History: Reports: None Infectious Medical History: Reports: None Past Surgical History: Reports: Hx Tonsillectomy - Immunizations Hx Diphtheria, Pertussis, Tetanus Vaccination: Yes Physical Exam - Vital signs Vitals: Temp Pulse Resp BP Pulse Ox 97.4 F 105 H 22 H 137/78 H 100 01/23/19 15:50 01/23/19 15:50 01/23/19 15:50 01/23/19 15:50 01/23/19 15:50 Course - Re-evaluation Re-evalutation: 01/23/19 21:10 CT shows large fluid collection extending from the tail of the pancreas into the left iliopsoas muscle, possible abscess however this is unlikely given appearance on CT scan as well as the patient is nontoxic-appearing without evidence of infection. Patient is empirically given IV Zosyn. Surgery recommends patient be transferred to tertiary center for drainage as this will likely be a complicated case. 01/23/19 23:35 3 at tertiary center, patient is appropriate for internal medicine floor with interventional radiology percutaneous drainage and surgery consult. [facility] however, there is an expected 24-48-hour wait, therefore additional tertiary facilities will be contacted for a more expeditious transfer. 01/24/19 03:15 Every other facility contacted, including [facility], had a longer expected wait time. - Vital Signs Vital signs: Temp Pulse Resp BP Pulse Ox 97.4 F 105 H 22 H 137/78 H 100 01/23/19 15:50 01/23/19 15:50 01/23/19 15:50 01/23/19 15:50 01/23/19 15:50 - Laboratory Result Diagrams: 01/23/19 17:06 01/23/19 17:06 Laboratory results interpreted by me: 01/23/19 01/23/19 01/23/19 17:06 17:06 17:06 WBC 15.3 H RBC 3.98 L Hgb 11.7 L Hct 34.9 L RDW 16.1 H Seg Neutrophils % 80.6 H Lymphocytes % 12.6 L Absolute Neutrophils 12.3 H Glucose 113 H ALT 19 L Urine Protein 100 H Urine Ketones 20 H Urine Bilirubin SMALL H Urine Urobilinogen 4.0 H Ur Leukocyte Esterase TRACE H Urine Ascorbic Acid 20 H - Diagnostic Test Radiology reviewed: Image reviewed, Reports reviewed - Consults Dr. Root Time consulted: 21:08 - patient will need internal gastropancreatic stent to drain fluid collection, best done at tertiary center Dr. Alicea ([facility]) Time consulted: 23:00 - patient is best on medicine service for IR drainage Dr. Arrieta (da) Time consulted: 23:35 - will accept to medicine floor Discharge - Discharge Clinical Impression: Flank pain, Intra-abdominal fluid collection Condition: Stable Disposition: [facility] Referrals: SUSANNAH RUGGIERO PA [Primary Care Provider] - Follow up as needed
[2019-01-23] MEDS ORDERED: PIPERACILLIN/TAZOBACTAM 4.5 GM VIAL IV ONE (20:47)
[2019-01-23] MEDS ORDERED: MORPHINE SULFATE 10 MG/ML INJ IV ONE (20:47)
[2019-01-23] MEDS ORDERED: NORMAL SALINE 1000 ML 1,000 ML IV ONE (20:47)
[2019-01-24] MEDS ORDERED: MORPHINE SULFATE 10 MG/ML INJ IV ONE ×2 (01:53→19:35)
[2019-01-24] MEDS ORDERED: HYDROMORPHONE HCL INJ/PF 2 MG/ML AMPULE IV ONE ×2 (08:32→13:59)
--- NOTE | 2019-01-24 08:33 | ER Document Report ---
Doctor's Note Notes: 01/24/19 08:33 Pending transfer at this time. Nurse requesting more pain medication. Chart was briefly reviewed. A milligram of Dilaudid was ordered. Cardiac monitoring ordered.
[2019-01-25] MEDS ORDERED: MORPHINE SULFATE 10 MG/ML INJ IV ONE (00:28)
[2019-01-25] MEDS ORDERED: HYDROMORPHONE HCL INJ/PF 2 MG/ML AMPULE IV ONE ×3 (07:43→17:26)
[2019-01-25 10:37] LABS: ABSOLUTE LYMPHOCYTES (AUTO) 1.8 10^3/uL (0.5-4.7); ABSOLUTE MONOCYTES (AUTO) 1.7 10^3/uL (0.1-1.4); BASOPHILS % (AUTO) 0.2 % (0-2); HEMATOCRIT 29.6 % (37.9-51.0); HEMOGLOBIN 10.1 g/dL (13.5-17.0); MEAN CORPUSCULAR HEMOGLOBIN 29.6 pg (27.0-33.4); MEAN CORPUSCULAR HGB CONC 34.2 g/dL (32.0-36.0); MEAN CORPUSCULAR VOLUME 87 fl (80-97); MONOCYTES % (AUTO) 9.8 % (3-13); PLATELET COUNT 292 10^3/uL (150-450); RED BLOOD COUNT 3.42 10^6/uL (4.35-5.55); RED CELL DISTRIBUTION WIDTH 15.6 % (11.5-14.0); TOTAL CELLS COUNTED % (AUTO) 100 %; WHITE BLOOD COUNT 17.5 10^3/uL (4.0-10.5)
[2019-01-25 10:43] LABS: ALANINE AMINOTRANSFERASE 20 U/L (21-72); ALBUMIN 3.2 g/dL (3.5-5.0); ALKALINE PHOSPHATASE 74 U/L (38-126); ANION GAP 9 (5-19); ASPARTATE AMINO TRANSFERASE 14 U/L (17-59); BILIRUBIN,DIRECT 0.3 mg/dL (0.0-0.4); BILIRUBIN,TOTAL 1.2 mg/dL (0.2-1.3); BLOOD UREA NITROGEN 15 mg/dL (7-20); CALCIUM 9.1 mg/dL (8.4-10.2); CARBON DIOXIDE 25 mmol/L (22-30); CHLORIDE 100 mmol/L (98-107); GLUCOSE 124 mg/dL (75-110); LIPASE 501.5 U/L (23-300); POTASSIUM 4.1 mmol/L (3.6-5.0); SODIUM 133.9 mmol/L (137-145); TOTAL PROTEIN 5.9 g/dL (6.3-8.2)
[2019-01-25] MEDS ORDERED: PIPERACILLIN/TAZOBACTAM 3.375 GM VIAL IV ONE (12:01)
[2019-01-25] MEDS ORDERED: NORMAL SALINE 1000 ML 1,000 ML IV ONE ×2 (12:01→17:27)
[2019-01-25] MEDS: PIPERACILLIN/TAZOBACTAM 3.375 GM VIAL IV SCH (17:53)
--- NOTE | 2019-01-25 18:52 | ER Document Report ---
Entered by JULITA ANDERSON SCRIBE 01/25/19 1833 Acting as scribe for:PAUL RAMÍREZ DO Doctor's Note Notes: Patient states that he was able to get some sleep last night. Patient reports no relief with any morphine that was given however he did receive relief with Dilaudid. Patient denies any nausea currently. Patient states most of his pain now seems to be localized to his left thigh. Patient denies any abdominal pain at this time. PHYSICAL EXAM GENERAL: Alert, interacts well. No acute distress. HEAD: Normocephalic, atraumatic. EYES: Pupils equal, round, and reactive to light. Extraocular movements intact. ENT: Oral mucosa moist, tongue midline. NECK: Full range of motion. Supple. Trachea midline. LUNGS: Clear to auscultation bilaterally, no wheezes, rales, or rhonchi. No respiratory distress. HEART: Regular rate and rhythm. No murmurs, gallops, or rubs. ABDOMEN: Soft, non-tender. Non-distended. Bowel sounds present in all 4 quadrants. No guarding, rigidity, or rebound. EXTREMITIES: Moves all 4 extremities spontaneously. No edema, radial and dorsalis pedis pulses 2/4 bilaterally. No cyanosis. NEUROLOGICAL: Alert and oriented x3. Normal speech. PSYCH: Normal affect, normal mood. SKIN: Warm, dry, normal turgor. No rashes or lesions noted. 01/25/19 18:49 Repeat laboratory studies were ordered, patient has increasing leukocytosis at 17.5, anemia stable, sodium slightly low at 133.9, we will continue to monitor this, lipase ordered and elevated at 5 1.5. Patient did have extensive question s regarding current care plan. Discussed with patient that we have been in contact with [facility] multiple times regarding when he would have a bed. At present they do not think they will have a bed for another 24-48 hours. Patient does not wish to be transfer to [facility] or to [place]. He is agreeable to me discussing possible transfer with Natalee Abraham. I have called the transfer line and left a message to have him call me back for possible transfer of this patient. Discussed with patient that his fluid collections will need surgical intervention and interventional radiology intervention that we cannot provide here. Given the increase in white blood cell count it is prudent that we start Zosyn again, this is been scheduled every 6 hours. Patient has been tolerating clear liquids without difficulty, his diet will be advanced to full liquids. I have scheduled repeat laboratory studies for tomorrow morning. Patient is aware that we are in a holding pattern where we continued to treat his infection with Zosyn but are unable to otherwise advance his care with surgery at this time. Patient continues to be stable. Does not need immediate transfer ER to ER at this moment but can wait until a bed is available as an inpatient at [facility]. I personally performed the services described in the documentation, reviewed and edited the documentation which was dictated to the scribe in my presence, and it accurately records my words and actions.
[2019-01-25 20:43] LABS: ABSOLUTE BASOPHILS # (AUTO) 0.1 10^3/uL (0.0-0.2); ABSOLUTE LYMPHOCYTES (AUTO) 2.3 10^3/uL (0.5-4.7); ABSOLUTE MONOCYTES (AUTO) 1.3 10^3/uL (0.1-1.4); ABSOLUTE NEUT (AUTO) 10.4 10^3/uL (1.7-8.2); BASOPHILS % (AUTO) 0.4 % (0-2); EOSINOPHILS % (AUTO) 0.2 % (0-6); HEMATOCRIT 28.3 % (37.9-51.0); HEMOGLOBIN 9.5 g/dL (13.5-17.0); LYMPHOCYTES % (AUTO) 16.6 % (13-45); MEAN CORPUSCULAR HEMOGLOBIN 29.5 pg (27.0-33.4); MEAN CORPUSCULAR HGB CONC 33.5 g/dL (32.0-36.0); MEAN CORPUSCULAR VOLUME 88 fl (80-97); PLATELET COUNT 294 10^3/uL (150-450); RED BLOOD COUNT 3.21 10^6/uL (4.35-5.55); RED CELL DISTRIBUTION WIDTH 15.9 % (11.5-14.0); SEGMENTED NEUTROPHILS % (AUTO) 73.8 % (42-78); TOTAL CELLS COUNTED % (AUTO) 100 %
[2019-01-25 20:46] LABS: ALANINE AMINOTRANSFERASE 16 U/L (21-72); ALBUMIN 3.1 g/dL (3.5-5.0); ALKALINE PHOSPHATASE 71 U/L (38-126); ANION GAP 8 (5-19); ASPARTATE AMINO TRANSFERASE 19 U/L (17-59); BILIRUBIN,DIRECT 0.3 mg/dL (0.0-0.4); BILIRUBIN,TOTAL 1.2 mg/dL (0.2-1.3); BLOOD UREA NITROGEN 14 mg/dL (7-20); CALCIUM 8.8 mg/dL (8.4-10.2); CARBON DIOXIDE 27 mmol/L (22-30); CHLORIDE 98 mmol/L (98-107); GLUCOSE 100 mg/dL (75-110); LIPASE 418.1 U/L (23-300); POTASSIUM 3.7 mmol/L (3.6-5.0); SODIUM 133.3 mmol/L (137-145); TOTAL PROTEIN 5.9 g/dL (6.3-8.2)
[2019-01-25] MEDS: HYDROMORPHONE HCL INJ/PF 2 MG/ML AMPULE IV PRN (21:53)
[2019-01-26] MEDS: PIPERACILLIN/TAZOBACTAM 3.375 GM VIAL IV SCH ×4 (00:08→18:00)
[2019-01-26] MEDS: HYDROMORPHONE HCL INJ/PF 2 MG/ML AMPULE IV PRN ×7 (01:23→22:17)
[2019-01-26 12:00] LABS: ABSOLUTE BASOPHILS # (AUTO) 0.1 10^3/uL (0.0-0.2); ABSOLUTE EOSINOPHILS # (AUTO) 0.1 10^3/uL (0.0-0.6); ABSOLUTE MONOCYTES (AUTO) 0.8 10^3/uL (0.1-1.4); ABSOLUTE NEUT (AUTO) 6.3 10^3/uL (1.7-8.2); BASOPHILS % (AUTO) 0.6 % (0-2); EOSINOPHILS % (AUTO) 0.8 % (0-6); HEMOGLOBIN 8.2 g/dL (13.5-17.0); LYMPHOCYTES % (AUTO) 21.8 % (13-45); MEAN CORPUSCULAR HEMOGLOBIN 29.6 pg (27.0-33.4); MEAN CORPUSCULAR VOLUME 87 fl (80-97); MONOCYTES % (AUTO) 8.8 % (3-13); PLATELET COUNT 259 10^3/uL (150-450); RED BLOOD COUNT 2.76 10^6/uL (4.35-5.55); RED CELL DISTRIBUTION WIDTH 15.9 % (11.5-14.0); TOTAL CELLS COUNTED % (AUTO) 100 %; WHITE BLOOD COUNT 9.3 10^3/uL (4.0-10.5)
[2019-01-26 12:19] LABS: ALANINE AMINOTRANSFERASE 29 U/L (21-72); ALBUMIN 2.7 g/dL (3.5-5.0); ALKALINE PHOSPHATASE 67 U/L (38-126); ANION GAP 9 (5-19); ASPARTATE AMINO TRANSFERASE 18 U/L (17-59); BILIRUBIN,DIRECT 0.3 mg/dL (0.0-0.4); BILIRUBIN,TOTAL 0.9 mg/dL (0.2-1.3); BLOOD UREA NITROGEN 13 mg/dL (7-20); CALCIUM 8.3 mg/dL (8.4-10.2); CARBON DIOXIDE 24 mmol/L (22-30); CHLORIDE 100 mmol/L (98-107); GLUCOSE 79 mg/dL (75-110); LIPASE 368.1 U/L (23-300); POTASSIUM 3.7 mmol/L (3.6-5.0); TOTAL PROTEIN 5.2 g/dL (6.3-8.2)
[2019-01-26] MEDS ORDERED: NORMAL SALINE 250 ML IV PRN (12:47)
--- NOTE | 2019-01-26 20:01 | ER Document Report ---
Doctor's Note Notes: 01/26/19 19:54 Assumed care of patient this morning when my shift began. Reviewed the chart and interviewed the patient. In summary, patient is a 38-year-old male who has a history of a pancreatic pseudocyst and chronic pancreatitis who came here on January 23, and was evaluated, including a CT scan of his abdomen and pelvis. This scan showed the patient to have a large collection of fluid in the left iliopsoas area that may be confluent with a large fluid collection associated with the tail of the pancreas. This could represent a large pancreatic pseudocyst. Abscess of the psoas was possible diagnosis as well. Also possible left kidney cyst. Attempts were made to transfer this patient to another facility as the procedure of a gastropancreatic stent, may be by percutaneous approach. Calls were placed almost all the local hospitals and none had beds available. [facility] accepted [facility] patient for transfer, but have no beds. [facility] in [place], was not able to accept the patient. [facility] also was not able to accept the patient Today, I found the patient's hemoglobin to be declining from 11.7 on January 23, his admission date to today's value of 8.2. I am concerned that this is not all dilutional from IVs that he received. Patient was given 2 units of packed cells. I called [facility] in [place] and Dr. Valdivia, who accepted the patient, but again they have no beds available at [facility]. I then called to [place] and was able to speak with a Dr. Ramos, who says that they do have beds at [facility] and that they would accept the patient for transfer. Awaiting bed assignment at this time.
[2019-01-26] MEDS ORDERED: METOCLOPRAMIDE HCL INJ/PF 10 MG/2 ML SDV ONE (22:10)
[2019-01-26] MEDS ORDERED: METOCLOPRAMIDE HCL INJ/PF 10 MG/2 ML SDV IV ONE (22:13)
[2019-01-26 22:25] VITALS: BP 132/85
== END 2019-01-26 22:25 | disposition short-term general hospital (02) ==
LOC: ER 15:43
DX: R18.8 Other ascites (principal); R10.9 Unspecified abdominal pain; F17.200 Nicotine dependence, unspecified, uncomplicated
CPT/HCPCS: 96376; 99285; 96361; 96375; 96365; 96366; 86900; 86901; 36415; 36430; 86850; 83690; 85025; 80053; 81001; 86920; 74176; P9016; J2765; J2270 ×3; J1170 ×3; J7030 ×2; J2543 ×3

== ENCOUNTER 2020-08-05 23:38 | Emergency (ER) | payer BC ==
[2020-08-06 00:15] LABS: ABSOLUTE EOSINOPHILS # (AUTO) 0.1 10^3/uL (0.0-0.6); EOSINOPHILS % (AUTO) 1.2 % (0-6); HEMOGLOBIN 12.8 g/dL (13.5-17.0); TOTAL CELLS COUNTED % (AUTO) 100 %
--- NOTE | 2020-08-06 00:22 | ER Document Report ---
ED GI/ - General Chief Complaint: Abdominal Pain Stated Complaint: UPPER BODY PAIN Time Seen by Provider: 08/05/20 23:51 Primary Care Provider: SUSANNAH RUGGIERO PA [NO LOCAL MD] - Follow up as needed DAQUAN CALI MD [NO LOCAL MD] - Follow up as needed Notes: CHIEF COMPLAINT: Left-sided abdominal pain HPI: 39-year-old male with prior history of pancreatic cysts that required surgical intervention and drainage at [place] 2 years ago presenting for sudden onset of left upper quadrant pain with some nausea no fever. Reports increased discomfort in the left upper abdomen with taking a deep breath in. Denies dysuria or hematuria denies penile or testicular pain. Patient did present by EMS. Patient did receive 100 mcg fentanyl on route ROS: See HPI - all other systems were reviewed and are otherwise negative Constitutional: no fever Eyes: no drainage, no blurred vision ENT: no runny nose, no sore throat Cardiovascular: no chest pain Resp: no SOB, no cough GI: no vomiting, no diarrhea, + abdominal pain, positive nausea : no dysuria Integumentary: no rash Allergy: no hives Musculoskeletal: no extremity pain or swelling Neurological: no numbness/tingling, no weakness MEDICATIONS: I agree with the patient medications as charted by the RN. ALLERGIES: I agree with the allergies as charted by the RN. PAST MEDICAL HISTORY/PAST SURGICAL HISTORY: Reviewed and agree as charted by RN. SOCIAL HISTORY: Reviewed and agree as charted by RN. FAMILY HISTORY: No significant familial comorbid conditions directly related to patient complaint EXAM: Reviewed vital signs as charted by RN. CONSTITUTIONAL: Alert and oriented and responds appropriately to questions. Well-appearing; well-nourished HEAD: Normocephalic; atraumatic EYES: PERRL; Conjunctivae clear, sclerae non-icteric ENT: normal nose; no rhinorrhea; moist mucous membranes; pharynx without lesions noted, no uvula edema or deviation, no tonsillar hypertrophy, phonation normal NECK: Supple without meningismus; non-tender; no cervical lymphadenopathy, no masses CARD: RRR; no murmurs, no clicks, no rubs, no gallops; symmetric distal pulses RESP: Normal chest excursion without splinting or tachypnea; breath sounds clear and equal bilaterally; no wheezes, no rhonchi, no rales, pulse oximetry 97% on room air not hypoxic ABD/GI: Normal bowel sounds; non-distended; soft, there is tenderness in the left upper quadrant on palpation, no rebound, no guarding; no palpable organomegaly or masses. BACK: The back appears normal and is non-tender to palpation, there is no CVA tenderness EXT: Normal ROM in all joints; non-tender to palpation; no cyanosis, no effusions, no edema SKIN: Normal color for age and race; warm; dry; good turgor; no acute lesions noted NEURO: Moves all extremities equally; Motor and sensory function intact PSYCH: The patient's mood and manner are appropriate. Grooming and personal hygiene are appropriate. MDM: 39-year-old male presenting with fairly sudden onset of left upper quadrant abdominal pain with some nausea this afternoon. Pain has been fairly constant over the last 11 to 12 hours. Hurts to palpate hurts to move hurts to take a deep breath in. Low suspicion for ACS. Patient otherwise reasonably healthy. Will obtain screening abdominal labs, plan for CT abdomen pelvis. Differential is large would include renal colic, gastritis, gastric ulcer, pancreatic cyst, diverticulitis. TRAVEL OUTSIDE OF THE [place] IN LAST 30 DAYS: No - Related Data Allergies/Adverse Reactions: No Known Allergies Allergy (Verified 12/06/18 16:47) Past Medical History - Social History Smoking Status: Current Every Day Smoker Frequency of alcohol use: None Drug Abuse: Marijuana Family History: Reviewed & Not Pertinent Renal/ Medical History: Denies: Hx Peritoneal Dialysis Past Surgical History: Reports: Hx Tonsillectomy - Immunizations Hx Diphtheria, Pertussis, Tetanus Vaccination: Yes Physical Exam - Vital signs Vitals: Resp Pulse Ox 12 96 08/05/20 23:44 08/05/20 23:44 Course - Re-evaluation Re-evalutation: 08/06/20 01:39 CT read shows large renal cyst on the left kidney putting a mass-effect on the kidney. Has creatinine is normal. Awaiting urinalysis. I have placed a call to [facility] to speak with her urologist about whether patient will need inpatient versus outpatient management of this. Awaiting callback. The transfer center has informed me that there is a wait list. Case discussed with Dr. Koch, Attending 08/06/20 02:[address] Cali, Urology at [facility]. He states "renal cysts are benign. You are calling me at 2 in the morning about a renal cyst. Give the patient pain medication and send the patient home". I did discuss the patient's labs and also read the CT read with the recommendation for percutaneous drainage to him. I have also power shared the images which he declined to look at. He is aware the patient will be referred to him. He then hung up the phone without further discussion. 08/06/20 02:54 - Vital Signs Vital signs: Temp Pulse Resp BP Pulse Ox 98.5 F 12 161/103 H 99 08/05/20 23:45 08/06/20 01:01 08/06/20 01:00 08/06/20 01:01 - Laboratory Result Diagrams: 08/05/20 23:49 08/05/20 23:49 Laboratory results interpreted by me: 08/05/20 08/05/20 08/06/20 23:49 23:49 01:28 WBC 11.4 H RBC 4.10 L Hgb 12.8 L Hct 37.0 L Absolute Neuts (auto) 8.8 H Sodium 135.9 L Glucose 118 H Lipase 427.6 H Urine Protein 30 H Discharge - Discharge Clinical Impression: Acute left flank pain, Renal cyst, left Condition: Stable Disposition: HOME, SELF-CARE Additional Instructions: Take the pain medications as prescribed. You are being referred to the urology group at [facility] for further management. We did speak with Dr. Cali the urologist power house control room operator today who recommended pain medication and discharge and they will follow you in the office. Please call their office today to schedule a recheck. Prescriptions: Oxycodone HCl/Acetaminophen [Percocet 5-325 mg Tablet] 1 tab PO Q4H PRN #15 tab PRN Reason: Ondansetron [Zofran Odt 4 mg Tablet] 1 - 2 tab PO Q4H PRN #15 tab.rapdis PRN Reason: For Nausea/Vomiting Referrals: SUSANNAH RUGGIERO PA [NO LOCAL MD] - Follow up as needed DAQUAN CALI MD [NO LOCAL MD] - Follow up as needed
[2020-08-06 00:23] LABS: ABSOLUTE BASOPHILS # (AUTO) 0.1 10^3/uL (0.0-0.2); ABSOLUTE LYMPHOCYTES (AUTO) 1.7 10^3/uL (0.5-4.7); ABSOLUTE MONOCYTES (AUTO) 0.7 10^3/uL (0.1-1.4); ABSOLUTE NEUT (AUTO) 8.8 10^3/uL (1.7-8.2); BASOPHILS % (AUTO) 0.5 % (0-2); LYMPHOCYTES % (AUTO) 14.9 % (13-45); MEAN CORPUSCULAR HEMOGLOBIN 31.3 pg (27.0-33.4); MEAN CORPUSCULAR HGB CONC 34.7 g/dL (32.0-36.0); MEAN CORPUSCULAR VOLUME 90 fl (80-97); MONOCYTES % (AUTO) 6.1 % (3-13); PLATELET COUNT 185 10^3/uL (150-450); RED CELL DISTRIBUTION WIDTH 13.6 % (11.5-14.0); SEGMENTED NEUTROPHILS % (AUTO) 77.3 % (42-78); WHITE BLOOD COUNT 11.4 10^3/uL (4.0-10.5)
[2020-08-06 00:24] LABS: ALBUMIN 4.1 g/dL (3.5-5.0); ALKALINE PHOSPHATASE 108 U/L (38-126); ANION GAP 8 (5-19); ASPARTATE AMINO TRANSFERASE 20 U/L (17-59); BILIRUBIN,DIRECT 0.3 mg/dL (0.0-0.4); BILIRUBIN,TOTAL 0.7 mg/dL (0.2-1.3); BLOOD UREA NITROGEN 12 mg/dL (7-20); CARBON DIOXIDE 23 mmol/L (22-30); CHLORIDE 105 mmol/L (98-107); GLUCOSE 118 mg/dL (75-110); POTASSIUM 3.8 mmol/L (3.6-5.0); TOTAL PROTEIN 6.7 g/dL (6.3-8.2)
[2020-08-06] MEDS ORDERED: MORPHINE SULFATE 10 MG/ML INJ IV ONE (00:25)
[2020-08-06] MEDS ORDERED: ONDANSETRON HCL INJ/PF 4 MG/2 ML SDV IV ONE (00:26)
--- NOTE | 2020-08-06 01:18 | RADIOLOGY REPORT (SQ) ---
COMPLETED DATE/TME: 08/06/2020 00:07 EXAM: CT abdomen and pelvis with contrast. INDICATION: Upper abdominal pain. TECHNIQUE: Contiguous axial CT images of the abdomen and pelvis. Intravenous contrast: Present. Oral contrast: Absent. DLP 500 mGy-cm. This exam was performed according to our departmental dose-optimization program, which includes automated exposure control, adjustment of the mA and/or kV according to patient size and/or use of iterative reconstruction technique. COMPARISON: 01/23/2019. FINDINGS: Lower chest: Partially imaged. Lung bases: Tiny left pleural effusion. Cardiac apex: Unremarkable. Solid abdominal viscera: Liver: Unremarkable. Gallbladder: Unremarkable. Pancreas: Calcifications along the pancreatic tail. Spleen: Unremarkable. Adrenal glands: Unremarkable. Right kidney: Contains nonobstructing stones. Left kidney: Previously described cyst causing mass effect along the upper pole and abutting the pancreatic tail has increased in size and now measures 12.5 x 10.1 x 9.8 cm (AP X TV X CC), previously measuring 7.3 x 6.2 x 6.1 cm. There is worsening compression of the left kidney. No hydronephrosis. Enhancement is normal. Urinary bladder: Unremarkable. Abdominal aorta: Unremarkable. Peritoneal: Free fluid: None. Free air: None. Other: No pathologic sized lymph nodes in the upper abdomen. Bowel: Stomach: Unremarkable. Small bowel: Unremarkable. Appendix: Unremarkable. Colon: Unremarkable. Rectum: Unremarkable. Prostate: Unremarkable. Bones: Unremarkable. Previously described left psoas collection has resolved. IMPRESSION: Enlarging cyst causing increased mass effect to the upper pole of the left kidney. This mass abuts the pancreatic tail which demonstrates some calcifications and may represent a pancreatic pseudocyst. Recommend percutaneous drainage.
[2020-08-06 01:52] LABS: APPEARANCE,URINE CLEAR; BILIRUBIN,URINE NEGATIVE (NEGATIVE); COLOR,URINE YELLOW; GLUCOSE, URINE NEGATIVE (NEGATIVE); KETONES,URINE NEGATIVE (NEGATIVE); LEUKOCYTE ESTERASE,URINE NEGATIVE (NEGATIVE); NITRITE,URINE NEGATIVE (NEGATIVE); PROTEIN,URINE 30 mg/dL (NEGATIVE); URINE SPECIFIC GRAVITY 1.058; UROBILINOGEN,URINE NEGATIVE mg/dL (<2.0)
[2020-08-06] MEDS ORDERED: OXYCODONE-ACETAMINOPHEN 5-325 MG TABLET PO ONE (02:32)
[2020-08-06 03:31] VITALS: BP 164/95
== END 2020-08-06 03:26 | disposition home or self-care (01) ==
LOC: ER 23:38
DX: N28.1 Cyst of kidney, acquired (principal); R10.12 Left upper quadrant pain; F17.200 Nicotine dependence, unspecified, uncomplicated
CPT/HCPCS: 99285; 96374; 96375; 36415; 83690; 85025; 80053; 81001; 74177; J2270; J2405

== ENCOUNTER 2020-08-10 05:56 | Emergency (ER) | payer BC ==
[2020-08-10 08:08] LABS: ABSOLUTE EOSINOPHILS # (AUTO) 0.1 10^3/uL (0.0-0.6); ABSOLUTE LYMPHOCYTES (AUTO) 1.1 10^3/uL (0.5-4.7); ABSOLUTE MONOCYTES (AUTO) 0.7 10^3/uL (0.1-1.4); ABSOLUTE NEUT (AUTO) 5.5 10^3/uL (1.7-8.2); BASOPHILS % (AUTO) 0.3 % (0-2); EOSINOPHILS % (AUTO) 0.8 % (0-6); HEMATOCRIT 31.9 % (37.9-51.0); HEMOGLOBIN 11.3 g/dL (13.5-17.0); LYMPHOCYTES % (AUTO) 15.1 % (13-45); MEAN CORPUSCULAR HEMOGLOBIN 31.7 pg (27.0-33.4); MEAN CORPUSCULAR HGB CONC 35.4 g/dL (32.0-36.0); MEAN CORPUSCULAR VOLUME 90 fl (80-97); MONOCYTES % (AUTO) 9.9 % (3-13); PLATELET COUNT 222 10^3/uL (150-450); RED BLOOD COUNT 3.55 10^6/uL (4.35-5.55); RED CELL DISTRIBUTION WIDTH 13.7 % (11.5-14.0); SEGMENTED NEUTROPHILS % (AUTO) 73.9 % (42-78); TOTAL CELLS COUNTED % (AUTO) 100 %; WHITE BLOOD COUNT 7.5 10^3/uL (4.0-10.5)
[2020-08-10 08:15] LABS: ALBUMIN 3.3 g/dL (3.5-5.0); ALKALINE PHOSPHATASE 124 U/L (38-126); ANION GAP 11 (5-19); ASPARTATE AMINO TRANSFERASE 29 U/L (17-59); BILIRUBIN,DIRECT 0.5 mg/dL (0.0-0.4); BILIRUBIN,TOTAL 1.1 mg/dL (0.2-1.3); BLOOD UREA NITROGEN 11 mg/dL (7-20); CALCIUM 9.2 mg/dL (8.4-10.2); CARBON DIOXIDE 27 mmol/L (22-30); CHLORIDE 96 mmol/L (98-107); GLUCOSE 113 mg/dL (75-110); POTASSIUM 3.8 mmol/L (3.6-5.0); TOTAL PROTEIN 6.1 g/dL (6.3-8.2)
[2020-08-10] MEDS ORDERED: NORMAL SALINE 1000 ML 1,000 ML IV ONE (08:22)
[2020-08-10] MEDS ORDERED: MORPHINE SULFATE 10 MG/ML INJ IV ONE ×2 (08:22→10:34)
[2020-08-10] MEDS ORDERED: ONDANSETRON HCL INJ/PF 4 MG/2 ML SDV IV ONE (08:22)
--- NOTE | 2020-08-10 08:29 | ER Document Report ---
ED General - General Chief Complaint: Abdominal Pain Stated Complaint: ABDOMINAL PAIN Time Seen by Provider: 08/10/20 08:04 TRAVEL OUTSIDE OF THE [place] IN LAST 30 DAYS: No - HPI Notes: Chief complaint: Left upper quadrant abdominal pain History of present illness: 39-year-old male previously seen here 4 days ago with left upper quadrant abdominal pain returns now for same. Patient was seen at that visit by midlevel provider and advised that he had a large left renal cyst and was referred to a urologist in [facility] for evaluation for possible outpatient drainage. He had a CT scan of the abdomen and pelvis with IV contrast during that visit and was told he also had a "small" pseudocyst in the tail of the pancreas. Interestingly we note that this man was treated in January 2019 at [facility] for a pseudocyst and had to undergo percutaneous drainage twice. He says he is abstain from all alcohol since that time. He reports that his pain in left upper quadrant is more or less continuous and he rates it 8/10 intensity with minimal relief with Percocet 5 which she was given to take at home for pain. He denies fever chills. He has had mild nausea without vomiting. He denies any prior abdominal surgery other than the percutaneous drainage of the pancreatic pseudocyst. - Related Data Allergies/Adverse Reactions: No Known Allergies Allergy (Verified 12/06/18 16:47) Home Medications: NORCO Past Medical History - General Information source: Patient, [facility] Records - Social History Smoking Status: Current Every Day Smoker Chew tobacco use (# tins/day): No Frequency of alcohol use: None Drug Abuse: Marijuana Occupation: Construction Lives with: Family Family History: Reviewed & Not Pertinent Patient has homicidal ideation: No Endocrine Medical History: Denies: Hx Diabetes Mellitus Type 1, Hx Diabetes Mellitus Type 2 Renal/ Medical History: Denies: Hx Peritoneal Dialysis GI Medical History: Reports: Hx Pancreatitis Past Surgical History: Reports: Hx Tonsillectomy - Immunizations Hx Diphtheria, Pertussis, Tetanus Vaccination: Yes Review of Systems - Review of Systems Notes: Constitutional: Negative for fever. HENT: Negative for sore throat. Eyes: Negative for visual changes. Cardiovascular: Negative for chest pain. Respiratory: Negative for shortness of breath. Gastrointestinal: As per HPI. Genitourinary: Negative for dysuria. Musculoskeletal: Negative for back pain. Skin: Negative for rash. Neurological: Negative for headaches, weakness or numbness. 10 point ROS negative except as marked above and in HPI. Physical Exam - Vital signs Vitals: Temp 98.9 F 08/10/20 06:03 - Notes Notes: GENERAL: Slender male of approximately stated age appearing in moderate discomfort. SKIN: Good turgor no rashes. HEAD: Normocephalic atraumatic. EYES: PERRLA. EOMI. Conjunctivae and sclerae clear. EARS: CANALS AND TMS CLEAR. NOSE: CLEAR. MOUTH: Moist mucosa. Good dentition. No stridor or edema. No drooling. NECK: Supple. No masses or thyromegaly. No adenopathy. Carotids 2+ without bruits. No JVD. BACK: Symmetrical without tenderness. CHEST: Respirations unlabored. Breath sounds clear and symmetrical. HEART: Regular rhythm. No murmur gallop or rub. ABDOMEN: Mild tenderness left upper quadrant. Soft without masses, organomegaly or rebound. Bowel sounds normally active. No bruits. GENITALIA: Deferred. EXTREMITIES: No edema. No calf tenderness. Cap refill less than 1.5 seconds. Dorsalis pedis and posterior tibial pulses 3+ and symmetrical. NEUROLOGICAL: GCS 15. Alert and oriented x3. Normal gait. Fluent speech. Cranial nerves II through XII intact. Sensorimotor and cerebellar normal. Normal tone. PSYCHIATRIC: Appropriate affect. Course - Re-evaluation Re-evalutation: 08/10/20 10:38 Patient has a large pancreatic pseudocyst which measures about 9 x [address] compressing left kidney. He is afebrile and hemodynamically stable. He is mildly chronically anemic with a hemoglobin 11.3 g. His white count is normal. His chemistry profile and lipase are unremarkable. Patient received 1 dose of morphine IV with initial control of his pain. He is hurting in now and is receiving additional morphine IV. Findings are discussed with the on-call surgical list, Dr. Root who recommended that we consult with another surgeon who is more comfortable with treatment of pancreatic disease. We note patient has previously been managed at [facility]. I have contacted the [facility] transfer center to consult with her insulation helper pancreatic specialist. 08/10/20 11:26 Case has been discussed by telephone with Dr. Marco Moseley at [facility] where the patient was previously hospitalized. He is also gone back and reviewed all the old records for this man. He is reviewed the CT scan today and current lab findings and clinical findings. He notes that the patient was previously treated by Dr. Rush Lowery at their facility. He recommends outpatient follow-up with Dr. Lowery and he is going to have the clinic contact patient within the next 24 hours to coordinate an outpatient visit. He feels he is stable for outpatient management. 08/10/20 11:33 Findings, clinical impression and plan of treatment have been discussed with patient/family. Understanding of current findings and recommendations has been acknowledged by them and there is agreement regarding disposition and follow-up. - Vital Signs Vital signs: Temp Pulse Resp BP Pulse Ox 98.9 F 97 14 145/91 H 100 08/10/20 06:08 08/10/20 06:08 08/10/20 06:08 08/10/20 06:08 08/10/20 06:08 - Laboratory Result Diagrams: 08/10/20 05:58 08/10/20 05:58 Laboratory results interpreted by me: 08/10/20 08/10/20 08/10/20 05:58 05:58 10:16 RBC 3.55 L Hgb 11.3 L Hct 31.9 L Sodium 133.9 L Chloride 96 L Glucose 113 H Direct Bilirubin 0.5 H Total Protein 6.1 L Albumin 3.3 L Urine Protein 30 H Urine Ketones 80 H Urine Blood SMALL H Urine Urobilinogen 4.0 H - Diagnostic Test Radiology reviewed: Reports reviewed - Noncontrast CT abdomen/pelvis per radiologist: Persistence of very large pancreatic pseudocyst compressing left kidney unchanged from prior CT 4 days ago. Discharge - Discharge Clinical Impression: Pancreatic pseudocyst Condition: Stable Disposition: HOME, SELF-CARE Additional Instructions: Take prescribed medication as directed. You will be contacted by Dr. Rush Lowery's office tomorrow to arrange outpatient clinic follow-up at [facility]. You have been provided a 3-day work note. Medications have been electronically transmitted to your pharmacy. Go directly to the emergency department at [facility] in the event of new or worsening symptoms: Pain that is worsening or unimproved Uncontrolled vomiting High fever or shaking chills Overall worsening Prescriptions: Oxycodone HCl/Acetaminophen [Percocet 5-325 mg Tablet] 1 - 2 tab PO Q4H PRN #15 tablet PRN Reason: Ondansetron [Zofran Odt 4 mg Tablet] 1 - 2 tab PO Q4H PRN #15 tab.rapdis PRN Reason: For Nausea/Vomiting Forms: Return to Work
--- NOTE | 2020-08-10 09:24 | RADIOLOGY REPORT (SQ) ---
EXAM DESCRIPTION: CT ABD/PELVIS NO ORAL OR IV IMAGES COMPLETED DATE/TIME: 08/10/2020 9:02 am REASON FOR STUDY: LUQ pain COMPARISON: 01/23/2019, 08/06/2020 TECHNIQUE: CT scan of the abdomen and pelvis performed without intravenous or oral contrast. Images reviewed with lung, soft tissue, and bone windows. Reconstructed coronal and sagittal MPR images revi ewed. All images stored on PACS. All CT scanners at this facility use dose modulation, iterative reconstruction, and/or weight based d osing when appropriate to reduce radiation dose to as low as reasonably achievable (ALARA). [facility]: Dose Right [facility]: CareDose [facility]: Dose Right [facility]: Teradose 4D [facility]: [facility] RADIATION DOSE: CT Rad equipment meets quality standard of care and radiation dose reduction techniq ues were employed. CTDIvol: 4.8 mGy. DLP: 248 mGy-cm.mGy. LIMITATIONS: None. FINDINGS: LOWER CHEST: No significant findings. No nodules or infiltrates. NON-CONTRASTED LIVER, SPLEEN, ADRENALS: Evaluation limited by lack of IV contrast. No identified sign ificant masses. PANCREAS: Again noted is a large cystic mass in the tail the pancreas with marked compression of the left kidney. Adjacent calcifications. This likely a pseudo cysts. This is not changed significantl y over the last 4 days. GALLBLADDER: No identified stones by CT criteria. No inflammatory changes to suggest cholecystitis. RIGHT KIDNEY AND URETER: No suspicious masses. Assessment limited by lack of IV contrast. No signif icant calcifications. No hydronephrosis or hydroureter. LEFT KIDNEY AND URETER: No suspicious masses. Assessment limited by lack of IV contrast. No signifi cant calcifications. No hydronephrosis or hydroureter. AORTA AND RETROPERITONEUM: No aneurysm. No retroperitoneal masses or adenopathy. BOWEL AND PERITONEAL CAVITY: No obvious masses or inflammatory changes. No free fluid. APPENDIX: Not visualized. PELVIS, BLADDER, AND ABDOMINAL WALL:No abnormal masses. No free fluid. Bladder normal. BONES: No significant findings. OTHER: No other significant finding. IMPRESSION: Large left upper quadrant mass presumed to be a pancreatic pseudo cysts with marked comp ression of the left kidney. No interval exchange teller the last 4 days. COMMENT: Quality ID # [id number]: Final reports with documentation of one or more dose reduction techniques (e.g., Automated exposure control, adjustment of the mA and/or kV according to patient size, use of iterative reconstruction technique) TECHNICAL DOCUMENTATION: JOB ID: [id number] 2010 [employer]- All Rights Reserved Reading location - IP/workstation name: [email or web address]
[2020-08-10 11:20] LABS: APPEARANCE,URINE SLIGHTLY-CLOUDY; BILIRUBIN,URINE NEGATIVE (NEGATIVE); COLOR,URINE AMBER; GLUCOSE, URINE NEGATIVE (NEGATIVE); KETONES,URINE 80 mg/dL (NEGATIVE); LEUKOCYTE ESTERASE,URINE NEGATIVE (NEGATIVE); NITRITE,URINE NEGATIVE (NEGATIVE); PROTEIN,URINE 30 mg/dL (NEGATIVE); URINE SPECIFIC GRAVITY 1.026
[2020-08-10 11:49] VITALS: BP 122/79
== END 2020-08-10 11:49 | disposition home or self-care (01) ==
LOC: ER 05:56
DX: K86.3 Pseudocyst of pancreas (principal); D64.9 Anemia, unspecified; R10.12 Left upper quadrant pain; R10.812 Left upper quadrant abdominal tenderness; R11.0 Nausea; F17.200 Nicotine dependence, unspecified, uncomplicated; F12.10 Cannabis abuse, uncomplicated; Z79.899 Other long term (current) drug therapy; Z98.890 Other specified postprocedural states
CPT/HCPCS: 96376; 99285; 96361; 96374; 96375; 36415; 83690; 85025; 80053; 81001; 74176; J2270; J2405; J7030